=== PATIENT | female | born 1970 | race Caucasian/White ===

== ENCOUNTER 2018-01-06 18:56 | Emergency (ER) | payer OTHER ==
[~2018-01-06] VITALS: Ht 167.6 cm; Wt 77.1 kg
[2018-01-06] MEDS ORDERED: HYDROMORPHONE 2 MG/1 ML DISP.SYRIN ONE (19:34)
[2018-01-06] MEDS ORDERED: ONDANSETRON ODT 4 MG TAB.RAPDIS ONE (19:34)
[2018-01-06] MEDS: HYDROMORPHONE 1 MG/1 ML DISP.SYRIN IM ONE (19:53)
[2018-01-06] MEDS: ONDANSETRON ODT 4 MG TAB.RAPDIS SL ONE (19:54)
--- NOTE | 2018-01-06 19:56 | NUR ---
PT BACK FROM XRAY
--- NOTE | 2018-01-06 20:34 | NUR ---
Patient discharged to home in stable conditon. Written and verbal after care instructions given. Patient verbalizes understanding of instructions.
== END 2018-01-06 20:41 | disposition home or self-care (01) ==
LOC: ER 18:57
DX: M54.5 Low back pain (principal); Z88.2 Allergy status to sulfonamides
CPT/HCPCS: 72100; 99284; A4663 ×2; J1170; Q0162

== ENCOUNTER 2018-07-31 17:10 | Emergency (ER) | payer OTHER ==
[~2018-07-31] VITALS: Ht 167.6 cm; Wt 82.6 kg
[2018-07-31] MEDS ORDERED: IBUPROFEN 800 MG TABLET (17:21)
[2018-07-31] MEDS ORDERED: CETIRIZINE HCL 10 MG TABLET (17:21)
[2018-07-31] MEDS ORDERED: DICLOFENAC SODIUM 1% GEL (17:21)
[2018-07-31] MEDS ORDERED: IBUPROFEN 800 MG TABLET PO ONE (17:30)
[2018-07-31] MEDS ORDERED: IBUPROFEN 800 MG TABLET ONE (17:31)
--- NOTE | 2018-07-31 17:34 | NUR ---
PT IS IN ROOM #1B. DR EMMANUEL EVALUATED THE PT.
--- NOTE | 2018-07-31 17:53 | NUR ---
PT WAS D/C TO HOME. D/C INSTRUCTIONS GIVEN TO THE PT.
[2018-07-31 17:54] VITALS: BP 132/77
== END 2018-07-31 17:55 | disposition home or self-care (01) ==
LOC: ER 17:13
DX: S13.4XXA Sprain of ligaments of cervical spine, initial encounter (principal); Z88.2 Allergy status to sulfonamides; V49.9XXA Car occupant (driver) (passenger) injured in unspecified traffic accident, initial encounter; Y93.89 Activity, other specified; Y92.410 Unspecified street and highway as the place of occurrence of the external cause; Y99.8 Other external cause status
CPT/HCPCS: 99282; A4663